=== PATIENT | female | born 1950 | race Caucasian/White ===

== ENCOUNTER 2019-02-22 12:31 | Day surgery (SDC) | payer OTHER ==
[2019-02-22] MEDS ORDERED: MIDAZOLAM 1 MG/ML 2 ML INJ ×2 (15:37)
[2019-02-22] MEDS ORDERED: FENTAnyl 50 MCG/ML VIAL (15:37)
== END 2019-02-22 16:27 | disposition home or self-care (01) ==
LOC: GIL 12:31
DX: K44.9 Diaphragmatic hernia without obstruction or gangrene (principal); K20.8 Other esophagitis; K31.7 Polyp of stomach and duodenum; I10 Essential (primary) hypertension; E11.9 Type 2 diabetes mellitus without complications; J45.909 Unspecified asthma, uncomplicated
CPT/HCPCS: 43239; 82962; 88305; 88312